=== PATIENT | male | born 1955 | race Caucasian/White ===

== ENCOUNTER 2021-07-28 21:47 | Inpatient (IN) | payer BC ==
[~2021-07-28] VITALS: Ht 182.9 cm; Wt 111.5 kg
[~2021-07-28 21:47] MED LIST: ASPI81CH PO; Augmentin 875-1 EACH PO; Fish Oil PO; LOVA40 PO; METF500C PO; Percocet 5-3251 EACH PO; Silvadene20 GM TOP
[2021-07-28] MEDS ORDERED: METFORMIN HCL500 M2 (22:30)
[2021-07-28] MEDS ORDERED: JARDIANCE25 MG PO (22:30)
[2021-07-28] MEDS ORDERED: CHLO25B PO (22:31)
[2021-07-28] MEDS ORDERED: Amaryl1 MG PO (22:31)
[2021-07-28] MEDS ORDERED: LOVASTATIN20 MG (22:32)
[2021-07-28] MEDS ORDERED: LOSARTAN POTAS100 M1 PO (22:32)
[2021-07-29 00:08] LABS: BASOPHILS ABSOLUTE AUTO 0.02 K/mm3 (0.00-0.23); BASOPHILS PERCENT AUTO 0 % (0-2); EOSINOPHILS PERCENT AUTO 0 % (0-6); Hemoglobin 14.2 g/dL (13.5-17.5); IMMATURE GRAN ABSOLUTE AUTO 0.04 K/mm3 (0.00-0.10); IMMATURE GRAN PERCENT AUTO 1 % (0-1); LYMPHOCYTES ABSOLUTE AUTO 0.88 K/mm3 (0.84-5.20); LYMPHOCYTES PERCENT AUTO 11 % (21-46); MONOCYTES ABSOLUTE AUTO 0.62 K/mm3 (0.16-1.47); MONOCYTES PERCENT AUTO 7 % (4-13); Mean Corpuscular HGB 28.4 pg (26.0-34.0); Mean Corpuscular HGB Conc 34.6 g/dL (31.5-36.5); Mean Corpuscular Volume 82 fL (80-100); Mean Platelet Volume 10.2 fL (9.1-12.4); NEUTROPHILS PERCENT AUTO 81 % (41-73); Platelet Count 247 K/mm3 (150-400); RDW Standard Deviation 36.6 fL (35.1-46.3); White Blood Cell Count 8.36 K/mm3 (4.00-11.30)
[2021-07-29 00:28] LABS: Albumin, Blood 2.9 g/dL (3.4-5.0); Albumin/Globulin Ratio 0.6 (0.8-1.8); Bilirubin, Total 0.5 mg/dL (0.1-1.0); Bun/Creatinine Ratio 31.8 (12.0-20.0); Calcium, Blood 8.6 mg/dL (8.5-10.1); Creatinine, Blood 1.32 mg/dL (0.60-1.20); Globulin, Blood 4.5 g/dL (2.2-4.0); Potassium, Blood 3.7 mmol/L (3.5-5.5); Total Protein, Blood 7.4 g/dL (6.4-8.2); Troponin I 0.18 ng/mL (0.000-0.040)
--- NOTE | 2021-07-29 03:50 | NUR ---
TRANSFER NOTE REPORT FROM JEFFERY CAMARILLO NURSE. PT ARRIVES TO THE FLOOR VIA GURNEY AND STANDS TO TRANSFER TO BED. PT ORIENTED TO ROOM AND UNIT. CALL LIGHT WITHIN REACH. ISOLATION MAINTAINED.
--- NOTE | 2021-07-29 06:02 | NUR ---
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 PT IS FULL CODE. PT FROM [facility] WITH ULCER X6 MONTHS (PICTURES IN CHART). PT GIVEN IV ABX AND FLUIDS. CONTINUES TO HAVE SYSTOLIC BP IN THE HIGHER 90S. PT DENIES DIZZINESS OR OTHER SYMPTOMS. NO OTHER CONCERNS THIS SHIFT. ISOLATION MAINTAINED.
[2021-07-29 08:02] LABS: BASOPHILS ABSOLUTE AUTO 0.02 K/mm3 (0.00-0.23); BASOPHILS PERCENT AUTO 0 % (0-2); EOSINOPHILS PERCENT AUTO 0 % (0-6); Hematocrit 40.9 % (37.0-53.0); Hemoglobin 13.9 g/dL (13.5-17.5); IMMATURE GRAN ABSOLUTE AUTO 0.01 K/mm3 (0.00-0.10); IMMATURE GRAN PERCENT AUTO 0 % (0-1); LYMPHOCYTES ABSOLUTE AUTO 1.21 K/mm3 (0.84-5.20); LYMPHOCYTES PERCENT AUTO 18 % (21-46); MONOCYTES ABSOLUTE AUTO 0.45 K/mm3 (0.16-1.47); MONOCYTES PERCENT AUTO 7 % (4-13); Mean Corpuscular HGB 28.4 pg (26.0-34.0); Mean Corpuscular Volume 84 fL (80-100); Mean Platelet Volume 10.4 fL (9.1-12.4); NEUTROPHILS ABSOLUTE AUTO 4.94 K/mm3 (1.96-9.15); NEUTROPHILS PERCENT AUTO 74 % (41-73); Platelet Count 236 K/mm3 (150-400); RDW Coefficient Variation 11.9 % (11.7-14.2); RDW Standard Deviation 36.5 fL (35.1-46.3); Red Blood Cell Count 4.89 M/mm3 (4.30-5.90); White Blood Cell Count 6.63 K/mm3 (4.00-11.30)
[2021-07-29 08:17] LABS: Albumin, Blood 2.7 g/dL (3.4-5.0); Albumin/Globulin Ratio 0.6 (0.8-1.8); Bilirubin, Total 0.5 mg/dL (0.1-1.0); Bun/Creatinine Ratio 29.8 (12.0-20.0); Calcium, Blood 8.5 mg/dL (8.5-10.1); Creatinine, Blood 1.24 mg/dL (0.60-1.20); Globulin, Blood 4.5 g/dL (2.2-4.0); Potassium, Blood 3.4 mmol/L (3.5-5.5); Total Protein, Blood 7.2 g/dL (6.4-8.2); Troponin I 0.155 ng/mL (0.000-0.040)
[2021-07-29 15:56] LABS: Troponin I 0.163 ng/mL (0.000-0.040)
--- NOTE | 2021-07-29 16:10 | NUR ---
echocardiogram complete
--- NOTE | 2021-07-29 16:40 | NUR ---
SHIFT SUMMARY PT ALERT AND ORIENTED ABLE TO MAKE NEEDS KNOWN. STILL REQUIRING 3L NC. DRY COUGH. ECHO COMPLETED TODAY WELL VQ SCAN. ATTEMPT TO CALL PT SISTER CHRISTIAN WHO IS AN RN PER PT REQUEST WITH NO RESPONSE. NO VOICEMAIL LEFT. HOURLY ROUNDING FOR SAFETY.
[2021-07-30 05:01] LABS: Hematocrit 39.7 % (37.0-53.0); Hemoglobin 13.3 g/dL (13.5-17.5); Mean Corpuscular HGB 28.4 pg (26.0-34.0); Mean Corpuscular HGB Conc 33.5 g/dL (31.5-36.5); Mean Corpuscular Volume 85 fL (80-100); Mean Platelet Volume 10.8 fL (9.1-12.4); Platelet Count 259 K/mm3 (150-400); RDW Standard Deviation 36.7 fL (35.1-46.3); Red Blood Cell Count 4.69 M/mm3 (4.30-5.90); White Blood Cell Count 7.05 K/mm3 (4.00-11.30)
[2021-07-30 05:33] LABS: Alanine Aminotransfer (ALT/SGP 49 U/L (12-78); Albumin, Blood 2.5 g/dL (3.4-5.0); Albumin/Globulin Ratio 0.6 (0.8-1.8); Alk Phos 57 U/L (50-136); Anion Gap 7 mmol/L (6-16); Aspartate Aminotrans (AST/SGOT 33 U/L (12-37); Bilirubin, Total 0.7 mg/dL (0.1-1.0); Blood Urea Nitrogen 27 mg/dL (8-24); Bun/Creatinine Ratio 24.8 (12.0-20.0); CO2, Blood 30 mmol/L (21-32); Calcium, Blood 8.6 mg/dL (8.5-10.1); Chloride, Blood 96 mmol/L (98-108); Creatinine, Blood 1.09 mg/dL (0.60-1.20); Globulin, Blood 4.5 g/dL (2.2-4.0); Glomerular Filtration Rate >60 (60-); Glucose, Blood 114 mg/dL (70-99); Magnesium, Blood 2.4 mg/dL (1.6-2.4); Phosphorus, Blood 2.9 mg/dL (2.5-4.9); Potassium, Blood 3.7 mmol/L (3.5-5.5); Sodium, Blood 133 mmol/L (136-145); Troponin I 0.177 ng/mL (0.000-0.040)
[2021-07-30 05:37] LABS: BAND PERCENT MAN 1 % (0-8); BASOPHILS PERCENT MAN 0 % (0-2); EOSINOPHILS ABSOLUTE MAN 0.07 K/mm3 (0.00-0.68); EOSINOPHILS PERCENT MAN 1 % (0-6); LYMPHOCYTES % ATYPICAL MANUAL 1 % (0-0); LYMPHOCYTES ABSOLUTE MAN 1.41 K/mm3 (0.84-5.20); LYMPHOCYTES PERCENT MAN 19 % (21-46); MONOCYTES ABSOLUTE MAN 0.84 K/mm3 (0.16-1.47); MONOCYTES PERCENT MAN 12 % (4-13); NEUTROPHILS ABSOLUTE MAN 4.72 K/mm3 (1.96-9.15); SEG NEUTROPHILS PERCENT MAN 66 % (41-73); TOTAL CELLS COUNTED 100
--- NOTE | 2021-07-30 05:58 | NUR ---
END OF SHIFT SUMMARY: Pt sats >91% on 3LNC. No reports of SOB overnight. Pt A&Ox4. Co needs/wants at this time. call light within reach.
--- NOTE | 2021-07-30 15:00 | NUR ---
HOME OXYGEN EVAL- OXYGEN AT REST ON ROOM AIT 85%, 1L 86%, 2L 87%, 3L 90%. WITH EXERTION ON 3L 87%, 4L 87%, 5L 90%.
[2021-07-30] MEDS ORDERED: ASCO500 PO (15:33)
[2021-07-30] MEDS ORDERED: Acetaminophen650 M1 PO (15:33)
[2021-07-30] MEDS ORDERED: BENZ100A PO (15:34)
[2021-07-30] MEDS ORDERED: ROBITUSSIN DM PO (15:34)
[2021-07-30] MEDS ORDERED: ONDA4ODT MM (15:35)
[2021-07-30] MEDS ORDERED: FAMO20 PO (15:35)
[2021-07-30] MEDS ORDERED: VISBIOME 112.51 EACH PO (15:35)
[2021-07-30] MEDS ORDERED: VITAMIN D31000 UNI1 PO (15:36)
[2021-07-30] MEDS ORDERED: ZINC220 PO (15:36)
== END 2021-07-30 18:05 | disposition home or self-care (01) | DRG 177 ==
LOC: ER 21:47 → MEDS 21:48 → ENPENDDIS 07-30 11:59 → MEDS 07-30 18:05
PROVIDERS: Family Medicine; Student in an Organized Health Care Education/Training Program; ADMIT Internal Medicine
PROC: XW033G6 Introduction of REGN-COV2 Monoclonal Antibody into Peripheral Vein, Percutaneous Approach, New Technology Group 6 (ICD-10-PCS; principal; 2021-07-29)
PROC: 8E0ZXY6 Isolation (ICD-10-PCS; 2021-07-29)
DX: U07.1 COVID-19 (principal); J12.82 Pneumonia due to coronavirus disease 2019; J96.01 Acute respiratory failure with hypoxia; I21.A1 Myocardial infarction type 2; N17.9 Acute kidney failure, unspecified; E87.1 Hypo-osmolality and hyponatremia; E11.9 Type 2 diabetes mellitus without complications; I10 Essential (primary) hypertension; E78.5 Hyperlipidemia, unspecified; Z79.899 Other long term (current) drug therapy; N18.9 Chronic kidney disease, unspecified; E87.6 Hypokalemia; Z98.890 Other specified postprocedural states; Z23 Encounter for immunization
CPT/HCPCS: 36415; 71045; 78580; 80053; 82550; 83735; 84100; 84145; 84484; 85025; 86140; 93005; 93010; 93306; 96372; 99285-25; A9270; A9540; G0378; J1650; J7030; Q0243

== ENCOUNTER → 2022-01-10 | Outpatient (CLI) | payer BC ==
[~2022-01-10] MED LIST changes: +ASCO500 PO; +Acetaminophen650 M1 PO; +Amaryl1 MG PO; +BENZ100A PO; +CHLO25B PO; +FAMO20 PO; +JARDIANCE25 MG PO; +LOSARTAN POTAS100 M1 PO; +LOVASTATIN20 MG; +METFORMIN HCL500 M2; +ONDA4ODT MM; +ROBITUSSIN DM PO; +VISBIOME 112.51 EACH PO; +VITAMIN D31000 UNI1 PO; +ZINC220 PO
== END | disposition home or self-care (01) ==
LOC: LAB SHORT 12:53 → LAB 12:53
DX: L08.9 Local infection of the skin and subcutaneous tissue, unspecified (principal); D22.71 Melanocytic nevi of right lower limb, including hip; D22.62 Melanocytic nevi of left upper limb, including shoulder; D48.5 Neoplasm of uncertain behavior of skin; D22.5 Melanocytic nevi of trunk; L57.0 Actinic keratosis; L57.8 Other skin changes due to chronic exposure to nonionizing radiation; L82.1 Other seborrheic keratosis; L81.4 Other melanin hyperpigmentation; Z71.89 Other specified counseling
CPT/HCPCS: 87070; 87205

== ENCOUNTER 2023-09-23 18:59 | Emergency (ER) | payer OTHER, BC ==
[~2023-09-23] VITALS: Ht 182.9 cm; Wt 117.9 kg
[2023-09-23 23:15] VITALS: BP 116/63
[2023-09-24] MEDS ORDERED: Ibuprofen600 MG PO (00:54)
[2023-09-24] MEDS ORDERED: ACET500 PO (00:54)
== END 2023-09-24 01:28 | disposition home or self-care (01) ==
LOC: ER 18:59
DX: S66.912A Strain of unspecified muscle, fascia and tendon at wrist and hand level, left hand, initial encounter (principal); S76.112A Strain of left quadriceps muscle, fascia and tendon, initial encounter; W01.10XA Fall on same level from slipping, tripping and stumbling with subsequent striking against unspecified object, initial encounter; Z79.899 Other long term (current) drug therapy; Z79.82 Long term (current) use of aspirin; Z79.84 Long term (current) use of oral hypoglycemic drugs; E11.9 Type 2 diabetes mellitus without complications; Z87.891 Personal history of nicotine dependence
CPT/HCPCS: 29505; 73100; 73552; 76882; 99284-25

== ENCOUNTER 2023-10-06 06:14 | Day surgery (SDC) | payer BC ==
[~2023-10-06] VITALS: Ht 182.9 cm; Wt 121.9 kg
[~2023-10-06 06:14] MED LIST changes: +ACET500 PO; +Ibuprofen600 MG PO
[2023-10-06] MEDS ORDERED: TRULICITY1.5 MG/0.1 SQ (06:32)
[2023-10-06] MEDS ORDERED: ATORVASTATIN CA20 MG (06:33)
[2023-10-06] MEDS ORDERED: JARDIANCE25 MG PO (06:34)
[2023-10-06] MEDS ORDERED: ZINC15 PO (06:35)
[2023-10-06] MEDS ORDERED: CENTRUM SILVER1 EAC2 PO (06:36)
[2023-10-06 09:52] VITALS: BP 109/71
--- NOTE | 2023-10-06 11:45 | NUR ---
10/06/23 1145 AshrafMorris kaplan IV REMOVED INTACT. SITE WNL. PT REPORTED 3/10 PAIN AT TIME OF DISCAHRGE. HE DESCRIBED PAIN TOLERABLE AND EXPRESSED READINESS TO RETURN HOME. PT CALM, TALKATIVE, AND RELAXED UPON D/C. FLACC 0/10. PT'S HEART RATE ON MONITOR PERIODICALLY DROPPED TO 40'S DURING PACU AND INITIAL ARRIVAL IN SDU. HIS O2 OCCASIONALLY DROPPED LOW 88%. AND HIS MAP DROPPED LOW 67. PT'S HEAD WAS LOWERED. HIS FLUIDS WERE OPENED. AND HE WAS WAS PLACED ON SUPPLEMENTAL O2. PT ALSO REPORTED DIZZINESS UPON INITIAL ARRIVAL IN SDU. DR. SALAZAR WAS CONSULTED AND ADVISED TO GIVE MORE IV FLUIDS. PT WAS GIVEN 450ML LR IV . HIS VITAL SIGNS NORMALIZED AFTER MOVING FROM [facility] TO [facility] AND HIS DIZZINESS BEGAN TO SUBSIDE. PT'S VITALS WERE ALL WITHIN 20% OF BASELINE UPON D/C, AND HE DENIED CARDIAC SYMPTOMS--INCLUDING CHEST PAIN, DIZZINESS, AND SOB.
== END 2023-10-06 10:55 | disposition home or self-care (01) ==
LOC: ORSCSDS 06:14
PROVIDERS: Orthopaedic Surgery
PROC: 0LQM0ZZ Repair Left Upper Leg Tendon, Open Approach (ICD-10-PCS; principal; 2023-10-06 07:30)
DX: S76.112A Strain of left quadriceps muscle, fascia and tendon, initial encounter (principal); E11.9 Type 2 diabetes mellitus without complications; I10 Essential (primary) hypertension; E78.5 Hyperlipidemia, unspecified; Z79.85 Long-term (current) use of injectable non-insulin antidiabetic drugs; Z79.84 Long term (current) use of oral hypoglycemic drugs; Z79.899 Other long term (current) drug therapy
CPT/HCPCS: 82947; J0690; J1100; J1885; J2250; J2405; J2704; J2795; J3010; J7120

== ENCOUNTER → 2025-08-01 | Outpatient (CLI) | payer BC ==
[~2025-08-01] MED LIST changes: +ATORVASTATIN CA20 MG; +CENTRUM SILVER1 EAC2 PO; +TRULICITY1.5 MG/0.1 SQ; +ZINC15 PO
[2025-08-01 15:17] LABS: Stool Occult Bld Immuno 1 Negative (NEGATIVE)
[2025-08-01 16:07] LABS: Creatinine, Urine Random 86.4 mg/dL (27.00-270.00); Microalb/Creat Ratio UR, Rand 13.079 mg/g (0.000-30.000); Microalbumin, Random Urine 11.3 mg/L (0.000-20.000)
== END ==
LOC: LAB 09:40 → LAB SHORT 09:40
PROVIDERS: Physician Assistant
DX: E11.65 Type 2 diabetes mellitus with hyperglycemia (principal); E11.42 Type 2 diabetes mellitus with diabetic polyneuropathy; Z86.0100 Personal history of colon polyps, unspecified
CPT/HCPCS: 82043; 82570; G0328